=== PATIENT | female | born 1995 | race Caucasian/White ===

== ENCOUNTER → 2021-06-02 16:22 | Outpatient (CLI) | payer BC, SELFPAY | PROVIDERS: Referring Provider Internal Medicine; Visit Provider Internal Medicine | DX: Z23 Encounter for immunization (principal) | CPT/HCPCS: 90471; 90686 ==

== ENCOUNTER 2022-02-24 18:18 | Emergency (ER) | payer OTHER, SELFPAY ==
[2022-02-24 18:45] VITALS: BP 125/77; PULSE 68; RESP 14; O2SAT 99
[2022-02-24 19:55] LABS: Alanine Aminotransferase 20 IU/L (<35)
[2022-02-24 21:54] LABS: HIV 1 & 2 Ab/Ag 4th Gen Combo NEGATIVE (NEGATIVE); Hepatitis B Surface Antigen NEGATIVE s/c (NEGATIVE)
[2022-02-24 22:20] LABS: Hep C Virus Ab w/Reflex Quant NEGATIVE s/c (NEGATIVE)
[2022-02-26 10:28] LABS: Hepatitis B Surf Ab Qualitativ Non Reactive (.)
== END 2022-02-24 20:03 | disposition left against medical advice (07) ==
PROVIDERS: Emergency Medicine; Emergency Provider Emergency Medicine
DX: Z77.21 Contact with and (suspected) exposure to potentially hazardous body fluids (principal); Y99.0 Civilian activity done for income or pay
CPT/HCPCS: 36415; 99283